=== PATIENT | female | born 1960 | race Caucasian/White ===

== ENCOUNTER 2016-10-26 06:35 | Emergency (ER) | payer OTHER ==
[~2016-10-26] VITALS: Ht 177.8 cm; Wt 104.5 kg
[~2016-10-26 06:35] MED LIST: ALBU6.7H INH; GABA300C3 PO; LANTUSP SQ; LISI-357 PO; METF-324 PO; METH750T2 PO; NAPR-576 PO; NAPR-729 PO; NAPR500 PO; ORPH100T PO; SYNT88TA PO; TRAD5TAB PO; TRAM50 PO
[2016-10-26 06:40] VITALS: BP 115/65; PULSE 92; RESP 16; TEMP 98.1; O2SAT 98
--- NOTE | 2016-10-26 07:10 | PD ---
HPI Chief Complaint: Complaint Time Seen by Provider: 06:55 Travel History International Travel<30 days: No Contact w/Intl Traveler<30days: No Traveled to known affect area: No History of Present Illness HPI This is a 56-year-old female who presents to the emergency department with dysuria, urgency, frequency and hesitancy associated with moderate severity suprapubic abdominal pain, intermittent. She denies any associated back pain, fevers or chills. She has had urinary tract infections in the past and she feels like this is similar. She does have a history of diabetes. PFSH Past Medical History Asthma: Yes Depression: Yes Cancer: No Cardiovascular Problems: No Diabetes: Yes Patient Takes Glucophage: Yes Diminished Hearing: No Endocrine: Yes Genitourinary: No Immune Disorder: No Musculoskeletal: No Neurologic: No Psychiatric: Yes Reproductive: No Immunizations Current: Yes Thyroid Disease: Yes (HYPOTHYROID) Menopausal: No Dilation and Curettage (D&C): Yes (AT AGE 23) Past Surgical History Appendectomy: Yes (08/25) Gynecologic Surgery: Yes (DNC @ 23YO) Pacemaker: No Tonsillectomy: Yes Social History Alcohol Use: Yes ([facility]) Tobacco Use: No Substance Use: No Allergies-Medications (Allergen,Severity, Reaction): Coded Allergies: Aspirin (Verified Allergy, Severe, RASH, 10/26/16) Motrin (Verified Allergy, Severe, HIVES, 10/26/16) Reported Meds & Prescriptions Reported Meds & Active Scripts Active Review of Systems Except as stated in HPI: all other systems reviewed are Neg Physical Exam Narrative GENERAL: Well-nourished, well-developed patient. SKIN: Warm and dry. HEAD: Normocephalic. EYES: No scleral icterus. No injection or drainage. NECK: Supple, trachea midline. CARDIOVASCULAR: Regular rate and rhythm without murmurs. RESPIRATORY: Breath sounds equal bilaterally. No accessory muscle use. GASTROINTESTINAL: Abdomen soft, non-tender, nondistended. : no CVA tenderness MUSCULOSKELETAL: No cyanosis, or edema. Data Data Last Documented VS Vital Signs Date Time Temp Pulse Resp B/P Pulse Ox O2 Delivery O2 Flow Rate FiO2 10/26/16 06:40 98.1 92 16 115/65 98 Room Air Orders Urinalysis - C+S If Indicated (10/26/16 06:50) Labs Laboratory Tests Test 10/26/16 06:55 Urine Color YELLOW Urine Turbidity CLEAR Urine pH 5.5 Urine Specific [place] 1.026 Urine Protein TRACE mg/dL Urine Glucose (UA) NEG mg/dL Urine Ketones TRACE mg/dL Urine Occult Blood NEG Urine Nitrite NEG Urine Bilirubin NEG Urine Urobilinogen 2.0 MG/DL Urine Leukocyte Esterase SMALL Urine RBC 1 /hpf Urine WBC 2 /hpf Urine Squamous Epithelial 2 /hpf Cells Urine Hyaline Casts 11 /lpf Urine Mucus FEW /lpf Microscopic Urinalysis Comment CULT NOT INDICATED MDM Medical Decision Making Medical Screen Exam Complete: Yes Emergency Medical Condition: Yes Interpretation(s) Afebrile, mild tachycardia, normotensive Urinalysis: Trace ketones, small leukocyte esterase Differential Diagnosis Urinary tract infection, pyelonephritis, PID, diverticulitis Narrative Course This is a 56-year-old female who presents to the emergency department with dysuria, urinary frequency and urgency consistent with a urinary tract infection. She is nontoxic appearing. Urinalysis is negative for infection, however given the patient's symptoms I think it's reasonable to treat her with Macrobid. I did discuss with the patient that her urinalysis is not suggestive of an infection and that if she develops new symptoms like fevers or vomiting she should return to the emergency department. She has an appointment with her yarn texture machine operator on Wednesday and I asked her to discuss her symptoms with her if they' ve not completely resolved by then. Diagnosis Primary Impression: Dysuria Patient Instructions: General Instructions Additional Instructions: If you develop fever, persistent vomiting, back pain, or inability to eat return to the emergency department as your urine infection may have progressed to a kidney infection. Complete your antibiotics as prescribed. Stay well hydrated with Gatorade or water. Followup with your primary care physician in 2-3 days if your symptoms have not resolved. Med/Other Pt SpecificInfo: Prescription(s) given Scripts Nitrofurantoin Monohydrate Macrocrystals (Macrobid)100 Mg [id number] Mg PO BID 7 Days Prov:Debbie Woods MD 10/26/16 Disposition: 01 DISCHARGE HOME Condition: Stable Debbie Woods MD Oct 26, 2016 07:10
[2016-10-26 07:14] LABS: BLOOD, URINE NEG (NEG); COMMENT (UR) CULT NOT INDICATED; CULTURE IF INDICATED CULT NOT INDICATED; GLUCOSE,URINE NEG (NEG); HYALINE CAST, URINE 11 /lpf (RARE); KETONE, URINE TRACE mg/dL (NEG); MUCUS URINE FEW /lpf (OCC); NITRITE,URINE NEG (NEG); PH, URINE 5.5 (5.0-8.5); SQUAMOUS EPITHELIAL CELL URINE 2 /hpf (0-5); URINE COLOR YELLOW (YELLW/STRAW)
[2016-10-26] MEDS ORDERED: MACR100C2 PO (07:23)
== END 2016-10-26 07:30 | disposition home or self-care (01) ==
LOC: NEPE 06:35
DX: R30.0 Dysuria (principal); R39.15 Urgency of urination; R35.0 Frequency of micturition; R39.11 Hesitancy of micturition; E11.9 Type 2 diabetes mellitus without complications; E03.9 Hypothyroidism, unspecified; Z79.84 Long term (current) use of oral hypoglycemic drugs; Z86.59 Personal history of other mental and behavioral disorders; Z87.09 Personal history of other diseases of the respiratory system
CPT/HCPCS: 81001; 99283

== ENCOUNTER → 2016-10-28 | Outpatient (CLI) | payer OTHER ==
[~2016-10-28] MED LIST changes: -ALBU6.7H INH; -GABA300C3 PO; -LANTUSP SQ; -LISI-357 PO; +MACR100C2 PO; -METF-324 PO; -METH750T2 PO; -NAPR-576 PO; -NAPR-729 PO; -NAPR500 PO; -ORPH100T PO; -SYNT88TA PO; -TRAD5TAB PO; -TRAM50 PO
[2016-10-28 07:50] LABS: FREE T4 1.55 NG/DL (0.76-1.46)
[2016-10-28 15:51] LABS: HEMOGLOBIN A1a 0.9 %; HEMOGLOBIN A1b 2.1 %; HEMOGLOBIN Ao 83.9 %
[2016-10-28 16:10] LABS: HDL CHOLESTEROL 57.7 MG/DL (40.0-60.0)
== END ==
LOC: CLAB 06:57
PROVIDERS: ATTEND Internal Medicine Endocrinology, Diabetes & Metabolism
DX: E11.9 Type 2 diabetes mellitus without complications (principal); E03.9 Hypothyroidism, unspecified; I10 Essential (primary) hypertension; E78.5 Hyperlipidemia, unspecified
CPT/HCPCS: 36415; 80061; 82306; 83036; 84439; 84443

== ENCOUNTER → 2017-02-24 | Outpatient (CLI) | payer OTHER ==
[2017-02-24 08:18] LABS: MICRO ALBUMIN RANDOM URINE RAW 8.9 MG/L (0.0-30.0)
[2017-02-24 08:41] LABS: ALKALINE PHOSPHATASE 77 U/L (45-117); ALT (GPT) 20 U/L (10-53); ANION GAP 10 MEQ/L (5-15); AST (GOT) 12 U/L (15-37); BICARBONATE 29.2 MEQ/L (21.0-32.0); BLOOD UREA NITROGEN 18 MG/DL (7-18); CHLORIDE 104 MEQ/L (98-107); FREE T4 1.26 NG/DL (0.76-1.46); GLOMERULAR FILTRATION RATE 67 ML/MIN (>89); GLUCOSE,FASTING 117 MG/DL (74-99); HDL CHOLESTEROL 51.6 MG/DL (40.0-60.0); LDL CHOLESTEROL 87 MG/DL (0-99); SODIUM (NA) 143 MEQ/L (136-145); TOTAL BILIRUBIN ADULT 0.4 MG/DL (0.2-1.0)
[2017-02-24 11:21] LABS: HEMOGLOBIN A1b 1.9 %; HEMOGLOBIN Ao 84.1 %; HEMOGLOBIN LA1C 2.1 %
== END ==
LOC: CLAB 07:27
PROVIDERS: ATTEND Internal Medicine Endocrinology, Diabetes & Metabolism
DX: E11.9 Type 2 diabetes mellitus without complications (principal); I10 Essential (primary) hypertension; E78.5 Hyperlipidemia, unspecified; E03.9 Hypothyroidism, unspecified; E55.9 Vitamin D deficiency, unspecified
CPT/HCPCS: 36415; 80053; 80061; 82043; 82306; 83036; 84439; 84443

== ENCOUNTER 2017-07-08 08:29 | Emergency (ER) | payer OTHER ==
[~2017-07-08] VITALS: Ht 175.3 cm; Wt 104.0 kg
[2017-07-08 08:33] VITALS: BP 167/87; PULSE 88; RESP 16; TEMP 98.9; O2SAT 99
[2017-07-08] MEDS ORDERED: LISI-519 PO (08:42)
[2017-07-08] MEDS ORDERED: GABA300C5 PO (08:42)
[2017-07-08] MEDS ORDERED: ROSU5 PO (08:42)
[2017-07-08] MEDS ORDERED: METF1000 PO (08:42)
[2017-07-08] MEDS ORDERED: LEVO100T5 PO (08:42)
[2017-07-08] MEDS ORDERED: LANTUS2P SQ (08:42)
[2017-07-08] MEDS ORDERED: TRAD5TAB PO (08:42)
[2017-07-08] MEDS ORDERED: CEPH-459 PO (09:14)
[2017-07-08] MEDS ORDERED: TETANUS/DIPHTHERIA TOXOID ADULT 0.5 ML VIAL IM ONE (09:15)
--- NOTE | 2017-07-08 09:15 | PD ---
HPI Chief Complaint: Laceration/Skin Injury Time Seen by Provider: 08:43 Travel History International Travel<30 days: No Contact w/Intl Traveler<30days: No Traveled to known affect area: No History of Present Illness HPI 56-year-old female presents to the emergency department for evaluation of small laceration to the left lower extremity. Patient reports that her dogs medical collar cut the leg at approximately 7 AM this morning. She washed the area and bandaged it herself. Her tetanus immunization is not up to date. She reports only minimal discomfort at the site. No other injuries. PFSH Past Medical History Asthma: Yes Depression: Yes Cancer: No Cardiovascular Problems: No Diabetes: Yes Diminished Hearing: No Endocrine: Yes Genitourinary: No Immune Disorder: No Musculoskeletal: No Neurologic: No Psychiatric: Yes Reproductive: No Immunizations Current: Yes Thyroid Disease: Yes (HYPOTHYROID) Menopausal: No Dilation and Curettage (D&C): Yes (AT AGE 23) Past Surgical History Appendectomy: Yes (08/25) Gynecologic Surgery: Yes (DNC @ 23YO) Pacemaker: No Tonsillectomy: Yes Social History Alcohol Use: Yes ([facility]) Tobacco Use: No Substance Use: No Allergies-Medications (Allergen,Severity, Reaction): Coded Allergies: aspirin (Verified Allergy, Severe, RASH, 07/08/17) ibuprofen (Verified Allergy, Severe, HIVES, 07/08/17) Reported Meds & Prescriptions Reported Meds & Active Scripts Active Keflex (Cephalexin) 250 Mg Cap 250 Mg PO Q6H 5 Days Reported Lantus Inj (Insulin Glargine) 1,000 Unit/10 Ml Vial 31 Units SQ HS Gabapentin 300 Mg Cap 300 Mg PO HS Crestor (Rosuvastatin Calcium) 5 Mg Tab 5 Mg PO DAILY Lisinopril 5 Mg Tab 5 Mg PO DAILY Levothyroxine (Levothyroxine Sodium) 100 Mcg Tab 100 Mcg PO DAILY Tradjenta (Linagliptin) 5 Mg Tab 5 Mg PO DAILY Metformin (Metformin HCl) 1,000 Mg Tab 1,000 Mg PO BIDPC With meals Review of Systems Except as stated in HPI: all other systems reviewed are Neg Physical Exam Narrative GENERAL: Well-nourished, well-developed patient. SKIN: Focused skin assessment warm/dry. Small 0.5 cm laceration to the left lower extremity medial aspect. No active bleeding. Wound edges well approximated. HEAD: Normocephalic. EYES: No scleral icterus. No injection or drainage. NECK: Supple, trachea midline. No JVD or lymphadenopathy. CARDIOVASCULAR: Regular rate and rhythm without murmurs, gallops, or rubs. RESPIRATORY: Breath sounds equal bilaterally. No accessory muscle use. GASTROINTESTINAL: Abdomen soft, non-tender, nondistended. MUSCULOSKELETAL: No cyanosis, or edema. Data Data Last Documented VS Vital Signs Date Time Temp Pulse Resp B/P (MAP) Pulse Ox O2 Delivery O2 Flow Rate FiO2 07/08/17 08:33 98.9 88 16 167/87 (113) 99 Orders Orders Tetanus/Diphtheria Tox Adult (Tetanus/Di (07/08/17 09:15) MDM Medical Decision Making Medical Screen Exam Complete: Yes Emergency Medical Condition: Yes Differential Diagnosis Laceration, abrasion, contusion Narrative Course 56-year-old female with small laceration to the left lower extremity. Wound edges are well approximated. There is no active bleeding. 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 Patient is a diabetic and concerned wound infection. The wound was thoroughly cleansed. Steri-Strip placed to approximate the edges. Patient advised to follow up PCP for wound recheck. Tetanus immunization updated. Procedures Procedure Narrative LACERATION LOCATION: Left lower extremity LENGTH: 0.5 cm NUMBER OF STITCHES/JULIAN: Steri-Stripped REPAIR: The area of the laceration was prepped with Betadine and sterilely draped. The wound was copiously irrigated and explored without evidence of foreign body, tendon injury or neurovascular injury. The wound was closed using Steri-Strip. A sterile dressing was applied. The patient was advised to keep the dressing clean and dry. Patient tolerated the procedure well. Diagnosis Primary Impression: Laceration of left leg Qualified Codes: S81.812A - Laceration without foreign body, left lower leg, initial encounter Referrals: Primary Care Physician Additional Instructions: Keep the Steri-Strip in place for 7 days Do not submerge the wound in water. Return if he develops signs of infection such as redness, increased pain, really drainage from site, fever or chills. Scripts Cephalexin (Keflex) 250 Mg Cap 250 MG PO Q6H for Infection for 5 Days, #20 CAP 0 Refills Prov: Alicia Conde 07/08/17 Disposition: 01 DISCHARGE HOME Condition: Stable Alicia Conde Jul 08, 2017 09:15
== END 2017-07-08 09:42 | disposition home or self-care (01) ==
LOC: NEPD 08:29
DX: S81.812A Laceration without foreign body, left lower leg, initial encounter (principal); J45.909 Unspecified asthma, uncomplicated; E11.9 Type 2 diabetes mellitus without complications; Z23 Encounter for immunization; W26.9XXA Contact with unspecified sharp object(s), initial encounter; Y93.9 Activity, unspecified; Y92.009 Unspecified place in unspecified non-institutional (private) residence as the place of occurrence of the external cause
CPT/HCPCS: 90471; 90714

== ENCOUNTER → 2017-08-25 | Outpatient (CLI) | payer OTHER ==
[~2017-08-25] MED LIST changes: +CEPH-459 PO; +GABA300C5 PO; +LANTUS2P SQ; +LEVO100T5 PO; +LISI-519 PO; -MACR100C2 PO; +METF1000 PO; +ROSU5 PO; +TRAD5TAB PO
[2017-08-25 10:16] LABS: ANION GAP 7 MEQ/L (5-15); AST (GOT) 16 U/L (15-37); BICARBONATE 26.9 MEQ/L (21.0-32.0); BLOOD UREA NITROGEN 18 MG/DL (7-18); CHLORIDE 104 MEQ/L (98-107); GLOMERULAR FILTRATION RATE 57 ML/MIN (>89); GLUCOSE,FASTING 98 MG/DL (74-99); POTASSIUM 3.8 MEQ/L (3.5-5.1); SODIUM (NA) 138 MEQ/L (136-145)
[2017-08-25 10:27] LABS: ALKALINE PHOSPHATASE 75 U/L (45-117); ALT (GPT) 23 U/L (10-53); FREE T4 1.32 NG/DL (0.76-1.46); HDL CHOLESTEROL 54.1 MG/DL (40.0-60.0); LDL CHOLESTEROL 74 MG/DL (0-99); TOTAL BILIRUBIN ADULT 0.4 MG/DL (0.2-1.0)
[2017-08-25 17:09] LABS: HEMOGLOBIN A1b 2.2 %; HEMOGLOBIN Ao 83.7 %
== END ==
LOC: PLAB 07:10
PROVIDERS: ATTEND Internal Medicine Endocrinology, Diabetes & Metabolism
DX: E78.5 Hyperlipidemia, unspecified (principal); E03.9 Hypothyroidism, unspecified; E11.9 Type 2 diabetes mellitus without complications; I10 Essential (primary) hypertension; E55.9 Vitamin D deficiency, unspecified
CPT/HCPCS: 36415; 80053; 80061; 82306; 83036; 84439; 84443

== ENCOUNTER 2018-06-17 12:35 | Inpatient (IN) ==
[2018-06-17 14:01] LABS: Baso # (Auto) 0.1 th/mm3 (0.0-0.2); Baso % (Auto) 0.4 % (0.0-2.0); Eos # (Auto) 0.1 th/mm3 (0.0-0.4); Hematocrit 40.8 % (35.0-46.0); Hemoglobin 13.6 gm/dL (11.6-15.3); Lymph # (Auto) 1.1 th/mm3 (1.0-4.8); Lymph % (Auto) 7.8 % (9.0-44.0); Mean Corpuscular HGB Conc 33.3 % (32.0-36.0); Mean Corpuscular Hemoglobin 31.6 pg (27.0-34.0); Mean Platelet Volume 8.2 fL (7.0-11.0); Mono # (Auto) 0.7 th/mm3 (0.0-0.9); Mono % (Auto) 4.8 % (0.0-8.0); Neut # (Auto) 12.2 th/mm3 (1.8-7.7); Platelet Count 306 th/mm3 (150-450); Red Blood Count 4.29 mil/mm3 (4.00-5.30); Red Cell Distribution Width 12.8 % (11.6-17.2); White Blood Count 14.1 th/mm3 (4.0-11.0)
[2018-06-17 14:21] LABS: Alkaline Phosphatase 85 U/L (45-117)
[2018-06-17 14:24] LABS: Alanine Aminotransferase 17 U/L (10-53); Albumin 3.4 g/dL (3.4-5.0); Anion Gap 15 meq/L (5-15); Aspartate Aminotransferase 17 U/L (15-37); Blood Urea Nitrogen 85 mg/dL (7-18); Carbon Dioxide 18.6 meq/L (21.0-32.0); Chloride 106 meq/L (98-107); Glomerular Filtration Rate 5 mL/min (>89); Glucose,Random 180 mg/dL (74-106); Lipase 145 U/L (73-393); Potassium 6.3 meq/L (3.5-5.1); Sodium 140 meq/L (136-145)
--- NOTE | 2018-06-17 14:50 | ED ---
HPI General Chief complaint: Abdominal Pain Stated complaint: Numbness On Face Time Seen by Provider: 06/17/18 14:28 History of Present Illness HPI narrative: 57-year-old female with history of diabetes, hypertension, here for evaluation of epigastric pain, feeling lightheaded, having a strange sensation and tingling in her mouth. About a week ago the patient was diagnosed with plantar fasciitis and started on naproxen 500 mg twice daily by her primary care physician. She began having some epigastric discomfort 2 days ago and started taking Nexium for this. She states that around this time she also began having symptoms of feeling lightheaded on standing, feeling as though her arms and legs are heavy, having intermittent palpitations. Basic lab work was performed in triage and were available as soon as the patient was brought back to an exam room and revealed that the patient is in acute renal failure. She has never had renal issues in the past. Related Data Allergies Allergy/AdvReac Type Severity Reaction Status Date / Time aspirin Allergy Severe RASH Verified 07/08/17 08:40 ibuprofen Allergy Severe HIVES Verified 07/08/17 08:40 Review of Systems ROS: all other systems reviewed are negative [facility] Medical History Medical History Asthma (Acute) Depression (Acute) Diabetes (Acute) Hypertension (Acute) Social History Social History Substance History: No History of Abuse Second Hand Smoke Exposure: No Smoking Status: Never smoker How Often Do You Have a Drink Containing Alcohol: 2 to 4 times a month Recent Travel in [facility] within the Last 8 Weeks: No Recent Out of Country Travel within the Last 8 Weeks: No Exam Narrative Exam Narrative: GENERAL: Well-developed, well-nourished, awake, alert, pleasant , no apparent distress. SKIN: Focused skin assessment warm/dry. HEAD: Atraumatic. Normocephalic. EYES: Pupils equal and round. No scleral icterus. No injection or drainage. ENT: No nasal bleeding or discharge. Mucous membranes pink and dry. NECK: Trachea midline. No JVD. CARDIOVASCULAR: Regular rate and rhythm. RESPIRATORY: No accessory muscle use. Clear to auscultation. Breath sounds equal bilaterally. GASTROINTESTINAL: Abdomen soft, nondistended. Mild epigastric tenderness without peritoneal signs. Rest of abdomen is soft and nontender. Normal bowel sounds. MUSCULOSKELETAL: No obvious deformities. No clubbing. No cyanosis. No edema. NEUROLOGICAL: Awake and alert. No obvious cranial nerve deficits. Motor grossly within normal limits. Normal speech. PSYCHIATRIC: Appropriate mood and affect; insight and judgment normal. Course Initial Documented Vital Signs Temperature 97.9 F 06/17/18 12:51 Pulse Rate 108 H 06/17/18 12:51 Respiratory Rate 18 06/17/18 12:51 Blood Pressure 152/61 H 06/17/18 12:51 Pulse Oximetry 96 06/17/18 12:51 Last Documented Vital Signs Temperature 97.9 F 06/17/18 12:51 Pulse Rate 98 H 06/17/18 16:10 Respiratory Rate 16 06/17/18 16:10 Blood Pressure 174/77 H 06/17/18 16:10 Pulse Oximetry 100 06/17/18 16:10 Medical Decision Making MDM Narrative Medical decision making narrative: This 57-year-old female is in acute renal failure with a creatinine of 8.57. This is likely secondary to naproxen use with history of diabetes and hypertension. She has never had renal failure in the past. Case discussed with on-call basting machine operator Dr. Guzman who agrees with my plan for 1 g of IV calcium gluconate, an amp of sodium bicarb, 1 L normal saline bolus followed by continuous infusion, and Kayexalate. Patient will be admitted and he will see the patient in consultation. Case discussed with hospitalist Dr. Alonso who will admit the patient to his service. Medical Screen Exam Complete: Yes Emergency Medical Condition: Yes Differential Diagnosis Differential Diagnosis: Acute renal failure, metabolic abnormality, peptic ulcer disease, pancreatitis, ACS Lab Data Result diagrams: 06/17/18 13:20 06/17/18 13:20 Lab Results 06/17/18 06/17/18 06/17/18 Range/Units 13:20 13:20 14:56 WBC 14.1 H (4.0-11.0) th/mm3 RBC 4.29 (4.00-5.30) mil/mm3 Hgb 13.6 (11.6-15.3) gm/dL Hct 40.8 (35.0-46.0) % MCV 95.0 (80.0-100.0) fL MCH 31.6 (27.0-34.0) pg MCHC 33.3 (32.0-36.0) % RDW 12.8 (11.6-17.2) % Plt Count 306 (150-450) th/mm3 MPV 8.2 (7.0-11.0) fL Neut % (Auto) 86.0 H (16.0-70.0) % Lymph % (Auto) 7.8 L (9.0-44.0) % [place] % (Auto) 4.8 (0.0-8.0) % Eos % (Auto) 1.0 (0.0-4.0) % Baso % (Auto) 0.4 (0.0-2.0) % Neut # (Auto) 12.2 H (1.8-7.7) th/mm3 Lymph # (Auto) 1.1 (1.0-4.8) th/mm3 [place] # (Auto) 0.7 (0.0-0.9) th/mm3 Eos # (Auto) 0.1 (0.0-0.4) th/mm3 Baso # (Auto) 0.1 (0.0-0.2) th/mm3 WBC Differential . Differential Comment Auto diff final PT 9.7 L (9.8-11.6) sec INR 1.0 Ratio APTT 25.0 (24.3-30.1) sec Sodium 140 (136-145) meq/L Potassium 6.3 H (3.5-5.1) meq/L Chloride 106 (98-107) meq/L Carbon Dioxide 18.6 L (21.0-32.0) meq/L Anion Gap 15 (5-15) meq/L BUN 85 H (7-18) mg/dL Creatinine 8.57 H (0.50-1.00) mg/dL Estimated GFR 5 L (>89) mL/min Random Glucose 180 H (74-106) mg/dL Calcium 9.0 (8.5-10.1) mg/dL Total Bilirubin 0.4 (0.2-1.0) mg/dL AST 17 (15-37) U/L ALT 17 (10-53) U/L Alkaline Phosphatase 85 (45-117) U/L Total Creatine Kinase (26-192) U/L Troponin I (0.02-0.05) ng/mL Total Protein 8.0 (6.4-8.2) g/dL Albumin 3.4 (3.4-5.0) g/dL Lipase 145 (73-393) U/L Urine Color (Yellw/Straw) Urine Clarity (Clear) Urine pH (5.0-8.5) Ur Specific [place] (1.002-1.035) Urine Protein (Neg-Trace) mg/dL Urine Glucose (UA) (Negative) mg/dL Urine Ketones (Negative) mg/dL Urine Occult Blood (Negative) Urine Nitrate (Negative) Urine Bilirubin (Negative) Urine Urobilinogen (Less than 2) mg/dL Ur Leukocyte Esterase (Negative) Urine RBC (0-3) /hpf Urine WBC (0-5) /hpf Ur Squamous Epith Cells (0-5) /hpf Urine Bacteria (None) /hpf Hyaline Casts (0-3) /lpf Micro UA Comment Ur Microscopic Review Urine Culture Comments 06/17/18 06/17/18 Range/Units 14:56 14:56 WBC (4.0-11.0) th/mm3 RBC (4.00-5.30) mil/mm3 Hgb (11.6-15.3) gm/dL Hct (35.0-46.0) % MCV (80.0-100.0) fL MCH (27.0-34.0) pg MCHC (32.0-36.0) % RDW (11.6-17.2) % Plt Count (150-450) th/mm3 MPV (7.0-11.0) fL Neut % (Auto) (16.0-70.0) % Lymph % (Auto) (9.0-44.0) % [place] % (Auto) (0.0-8.0) % Eos % (Auto) (0.0-4.0) % Baso % (Auto) (0.0-2.0) % Neut # (Auto) (1.8-7.7) th/mm3 Lymph # (Auto) (1.0-4.8) th/mm3 [place] # (Auto) (0.0-0.9) th/mm3 Eos # (Auto) (0.0-0.4) th/mm3 Baso # (Auto) (0.0-0.2) th/mm3 WBC Differential Differential Comment PT (9.8-11.6) sec INR Ratio APTT (24.3-30.1) sec Sodium (136-145) meq/L Potassium (3.5-5.1) meq/L Chloride (98-107) meq/L Carbon Dioxide (21.0-32.0) meq/L Anion Gap (5-15) meq/L BUN (7-18) mg/dL Creatinine (0.50-1.00) mg/dL Estimated GFR (>89) mL/min Random Glucose (74-106) mg/dL Calcium (8.5-10.1) mg/dL Total Bilirubin (0.2-1.0) mg/dL AST (15-37) U/L ALT (10-53) U/L Alkaline Phosphatase (45-117) U/L Total Creatine Kinase 48 (26-192) U/L Troponin I Less than 0.02 L (0.02-0.05) ng/mL Total Protein (6.4-8.2) g/dL Albumin (3.4-5.0) g/dL Lipase 131 (73-393) U/L Urine Color Yellow (Yellw/Straw) Urine Clarity Cloudy H (Clear) Urine pH 5.0 (5.0-8.5) Ur Specific [place] 1.013 (1.002-1.035) Urine Protein 30 H (Neg-Trace) mg/dL Urine Glucose (UA) Negative (Negative) mg/dL Urine Ketones Negative (Negative) mg/dL Urine Occult Blood Small H (Negative) Urine Nitrate Negative (Negative) Urine Bilirubin Negative (Negative) Urine Urobilinogen Less than 2 (Less than 2) mg/dL Ur Leukocyte Esterase Trace H (Negative) Urine RBC 1 (0-3) /hpf Urine WBC 9 H (0-5) /hpf Ur Squamous Epith Cells 2 (0-5) /hpf Urine Bacteria Rare H (None) /hpf Hyaline Casts 1 (0-3) /lpf Micro UA Comment Culture indicated Ur Microscopic Review Not Reportable Urine Culture Comments Culture indicated Imaging Data Radiologist's impression: Abdomen/Pelvis CT 06/17/18 14:33 CONCLUSION: 1. Negative for an acute process Discharge Plan Discharge Disposition Patient Disposition: 30 Still Patient Discharge Details Diagnosis: Acute renal failure, Acute hyperkalemia Physicians Team ED Provider: Wali Wall Primary Care Provider: Tariq Schroeder Discharge Interventions Interventions: Vital Signs Last Done: 06/17/18 16:10 Status ED Status: With Doctor
[2018-06-17] MEDS ORDERED: Sod Chloride 0.9% Inj 1,000 ML IV.CONT SCH (15:15)
[2018-06-17] MEDS ORDERED: Sodium Polystyrene Sulfonate/Sorbitol Liq 15 GM/60 ML UDC PO ONE (15:15)
[2018-06-17 15:26] LABS: Lipase 131 U/L (73-393)
[2018-06-17 15:28] LABS: Prothrombin Time 9.7 sec (9.8-11.6)
[2018-06-17 15:29] LABS: Creatine Kinase 48 U/L (26-192)
[2018-06-17] MEDS ORDERED: Dextrose 50% in Water 50 ML Vial IV.PUSH ONE (15:33)
--- NOTE | 2018-06-17 15:41 | CT ---
EXAM DATE: 06/17/2018 3:16 PM EDT AGE/SEX: 57 years / Female INDICATIONS: Epigastric pain and ammonia taste in the mouth. CLINICAL DATA: This is the patient's initial encounter. Patient reports that signs and symptoms have been present for 1 week and indicates a pain score of 4/10. MEDICAL/SURGICAL HISTORY: Diabetes. Appendectomy. RADIATION DOSE: 11.75 CTDI (mGy) COMPARISON: No prior exams available for comparison. TECHNIQUE: Multiple contiguous axial images were obtained through the abdomen. Images were obtained using multiple row detector helical technique. Using automated exposure control and adjustment of the mA and/or kV according to patient size, radiation dose was kept as low as reasonably achievable to o btain optimal diagnostic quality images. DICOM format image data is available electronically for rev iew and comparison. FINDINGS: Lung bases are clear. Percocet The liver and gallbladder unremarkable Spleen and pancreas appear normal and kidneys unremarkable Cecum, ascending, transverse and descending colon appear normal. Pelvic contents are unremarkable Portion of the skeleton visualized is unremarkable CONCLUSION: 1. Negative for an acute process Electronically signed by: Earl Beckham MD 06/17/2018 3:40 PM EDT
[2018-06-17 15:59] LABS: Bacteria,Urine Rare /hpf; Bilirubin,Urine Negative (Negative); Clarity,Urine Cloudy (Clear); Color,Urine Yellow (Yellw/Straw); Glucose,Urine (UA) Negative (Negative); Hyaline Casts,Urine 1 /lpf (0-3); Leukocyte Esterase,Urine Trace (Negative); Nitrite,Urine Negative (Negative); Specific Gravity,Urine 1.013 (1.002-1.035); Squamous Epithelial Cell,Urine 2 /hpf (0-5)
[2018-06-17] MEDS ORDERED: Dextrose 50% in Water 50 ML Vial IV.PUSH PRN (16:47)
[2018-06-17] MEDS: Sod Chloride 0.9% Inj 1,000 ML IV.CONT SCH ×2 (16:50→20:13)
--- NOTE | 2018-06-17 17:37 | P.HPIM ---
History of Present Illness Primary Care Physician: Tariq Schroeder MD History of Present Illness: Mrs. Flores is a 57-year-old female. She has a past medical history of diabetes and hypertension. She also had plantar fasciitis with rupture approximately 1 week ago. For this she had been treated with NSAIDs. She comes into the ER today complaining of facial numbness. Workup reveals that she is in acute renal failure. She has no prior history of renal disease. Creatinine is 8.57 and potassium is elevated at 6.3. Treatments for hyperkalemia given in the ER. Patient denies any recent trauma to the back. She also has not had any significant amount of diarrhea and no nausea or vomiting. No risk for dehydration. A urinary tract infection is present and may have been contributory though this is not suspected to be the primary cause. She reports that she is not an avid drinker of liquids but she does drink and eat regularly. No other complaints at this time. - Diagnosis (1) Acute renal failure (2) Acute hyperkalemia Inpatient Certification: I certify that the inpatient services were ordered in accordance with Medicare regulations governing the order. This includes certification that hospital inpatient services are reasonable and necessary and in the case of services not specified as inpatient-only under 42 CFR 419.22(n), that they are appropriately provided as inpatient services in accordance to with the 2-midnight benchmark under 43 CFR 412.3(e) Estimated Total Length of Stay (Days): 3 Plans for Post Hospital Care: Home Review of Systems Constitutional: No fevers, no chills no night sweats, no fatigue, weakness Eyes: No eye pain, no blurry vision, no loss of vision ENT: No sore throat, no ear pain, no rhinorrhea Cardiovascular: No chest pain, no tachycardia, no palpitations, no shortness of breath, no syncope Respiratory: No wheezing, no cough, no shortness of breath Gastrointestinal: No abdominal pain, no black tarry stools, no bright red blood per rectum, no vomiting, no diarrhea Musculoskeletal: No joint pain, no muscle cramps, no stiffness Integumentary: No rash, no ulcers, no drainage Neurologic: No sensory loss, no loss of motor function, no dizziness, facial numbness Psychiatric: No behavioral changes, no hallucinations, no suicidal ideations PMF - History History Provided By: Patient - Medical History Medical History: Medical History (Last Updated 06/17/18 @ 14:59 by Renzo Valerio) Asthma Depression Diabetes Hypertension - Family History Family History: Family History (Last Updated 06/17/18 @ 17:33 by Eliu Alonso MD) Other Osteoarthritis - Tobacco History Second Hand Smoke Exposure: No Tobacco Use In Past 30 Days: No Smoking Status: Never smoker - Alcohol History How Often Do You Have a Drink Containing Alcohol: 2 to 4 times a month - Substance Use History Substance History: No History of Abuse - Travel History Recent Travel in the [place] Within the Last 8 Weeks: No Recent Travel Out of the Country Within the Last 8 Weeks: No - Immunization History Tetanus Immunization: <5 Years Hx Influenza Vaccine This Season: Yes Medications and Allergies Active Medications: Active Medications Al Hydroxide/Mg Hydroxide (Milk Of Suresh Liq) 30 ml PO Q12H PRN PRN Reason: Mild Constipation Dextrose (D50w Vial) 50 ml IV.PUSH UNSCH PRN PRN Reason: PER HYPOGLYCEMIA PROTOCOL Glucagon (Glucagon Inj) 1 mg OTHER UNSCH PRN PRN Reason: for Hypoglycemia Protocol Sodium Chloride (Ns Inj) 1,000 mls @ 125 mls/hr IV.CONT .Q8H ALEKSANDR Last Admin: 06/17/18 16:50 Dose: 125 mls/hr Insulin Aspart (Novolog Insulin Correctional Sugar Inj) 0 unit SQ ACHS ALEKSANDR; Protocol Ondansetron HCl (Zofran Inj) 4 mg IV.PUSH Q6H PRN PRN Reason: NAUSEA OR VOMITING Sodium Chloride (Ns Flush) 2 ml IV.FLUSH PRN PRN PRN Reason: FLUSH AFTER USING IV ACCESS Allergies Allergy/AdvReac Type Severity Reaction Status Date / Time aspirin Allergy Severe RASH Verified 07/08/17 08:40 ibuprofen Allergy Severe HIVES Verified 07/08/17 08:40 Home Medications Medication Instructions Recorded Confirmed Type gabapentin 300 mg PO QID 06/17/18 06/17/18 History insulin glargine [Lantus U-100 31 units SUB-Q HS 06/17/18 06/17/18 History Insulin] levothyroxine 100 mcg PO DAILY 06/17/18 06/17/18 History linagliptin [Tradjenta] 5 mg PO DAILY 06/17/18 06/17/18 History lisinopril 5 mg PO DAILY 06/17/18 06/17/18 History metformin 1,000 mg PO BID 06/17/18 06/17/18 History rosuvastatin [Crestor] 5 mg PO DAILY 06/17/18 06/17/18 History Exam Vital signs: Vital Signs 06/17/18 12:51 06/17/18 13:03 06/17/18 16:10 Temperature 97.9 F Pulse Rate 108 H 97 H 98 H Respiratory Rate 18 18 16 Blood Pressure 152/61 H 172/85 H 174/77 H Pulse Oximetry 96 98 100 06/17/18 16:50 Temperature Pulse Rate 98 H Respiratory Rate 16 Blood Pressure 174/77 H Pulse Oximetry 100 Intake & Output 06/16/18 06/17/18 06/17/18 18:59 06:59 18:59 Weight 101.151 kg Narrative: GENERAL: NAD, A&Ox3 HEAD: Normocephalic. NECK: Supple, trachea midline. No lymphadenopathy. EYES: No scleral icterus. No injection or drainage. CARDIOVASCULAR: Regular rate and rhythm without murmurs, gallops, or rubs. RESPIRATORY: Breath sounds equal bilaterally. No accessory muscle use. GASTROINTESTINAL: Abdomen soft, non-tender, nondistended. MUSCULOSKELETAL: No cyanosis, or edema. SKIN: Warm and dry. NEURO: No focal neurological deficits. Results - Labs CBC & Chem 7: 06/17/18 13:20 06/17/18 13:20 Labs: Short CBC 06/17/18 Range/Units 13:20 WBC 14.1 H (4.0-11.0) th/mm3 Hgb 13.6 (11.6-15.3) gm/dL Hct 40.8 (35.0-46.0) % Plt Count 306 (150-450) th/mm3 BMP 06/17/18 13:20 Sodium 140 Potassium 6.3 H Chloride 106 Carbon Dioxide 18.6 L BUN 85 H Creatinine 8.57 H Calcium 9.0 Cardiac Enzymes 06/17/18 Range/Units 14:56 Total Creatine Kinase 48 (26-192) U/L Troponin I Less than 0.02 L (0.02-0.05) ng/mL Liver Function 06/17/18 Range/Units 13:20 Total Bilirubin 0.4 (0.2-1.0) mg/dL AST 17 (15-37) U/L ALT 17 (10-53) U/L Alkaline Phosphatase 85 (45-117) U/L Albumin 3.4 (3.4-5.0) g/dL Urine 06/17/18 Range/Units 14:56 Urine Color Yellow (Yellw/Straw) Urine Clarity Cloudy H (Clear) Urine pH 5.0 (5.0-8.5) Ur Specific [place] 1.013 (1.002-1.035) Urine Protein 30 H (Neg-Trace) mg/dL Urine Glucose (UA) Negative (Negative) mg/dL - Imaging Impressions Abdomen/Pelvis CT 06/17/18 14:33 CONCLUSION: 1. Negative for an acute process Caprini VTE Risk Assessment Caprini VTE Risk Assessment: No/Low Risk (score <= 1) Caprini Risk Assessment Model: Point Value = 1 Point Value = 2 Point Value = 3 Point Value = 5 Age 41-60 Minor surgery BMI > 25 kg/m2 Swollen legs Varicose veins or History of unexplained or recurrent spontaneous Oral contraceptives or hormone replacement Sepsis (< 1 month) Serious lung disease, including pneumonia (< 1 month) Abnormal pulmonary function Acute myocardial infarction Congestive heart failure (< 1 month) History of inflammatory bowel disease Medical patient at bed rest Age 61-74 Arthroscopic surgery Major open surgery (> 45 min) Laparoscopic surgery (> 45 min) Malignancy Confined to bed (> 72 hours) Immobilizing plaster cast Central venous access Age >= 75 History of VTE Family history of VTE Factor V Leiden Prothrombin 30857A Lupus anticoagulant Anticardiolipin antibodies Elevated serum homocysteine Heparin-induced thrombocytopenia Other congenital or acquired thrombophilia Stroke (< 1 month) Elective arthroplasty Hip, pelvis, or leg fracture Acute spinal cord injury (< 1 month) Prophylaxis Regimen: Total Risk Factor Score Risk Level Prophylaxis Regimen 0-1 Low Early ambulation 2 Moderate Order ONE of the following: *Sequential Compression Device (SCD) *Heparin 5000 units SQ BID 3-4 Higher Order ONE of the following medications: *Heparin 5000 units SQ TID *Enoxaparin/Lovenox 40 mg SQ daily (WT < 150 kg, CrCl > 30 mL/min) *Enoxaparin/Lovenox 30 mg SQ daily (WT < 150 kg, CrCl > 10-29 mL/min) *Enoxaparin/Lovenox 30 mg SQ BID (WT < 150 kg, CrCl > 30 mL/min) AND/OR *Sequential Compression Device (SCD) 5 or more Highest Order ONE of the following medications: *Heparin 5000 units SQ TID (Preferred with Epidurals) *Enoxaparin/Lovenox 40 mg SQ daily (WT < 150 kg, CrCl > 30 mL/min) *Enoxaparin/Lovenox 30 mg SQ daily (WT < 150 kg, CrCl > 10-29 mL/min) *Enoxaparin/Lovenox 30 mg SQ BID (WT < 150 kg, CrCl > 30 mL/min) AND *Sequential Compression Device (SCD) Assessment and Plan - Assessment (1) Acute renal failure Code(s): N17.9 - Acute kidney failure, unspecified Status: Acute (2) Acute hyperkalemia Code(s): E87.5 - Hyperkalemia Status: Acute - Plan 57-year-old female admitted secondary to acute renal failure with hyperkalemia and neurologic/cardiac symptoms Acute renal failure Etiology may be related to NSAIDs IV hydration Discontinue NSAIDs Avoid nephrotoxins Nephrology consult Renal ultrasound Monitor creatinine Monitor for improvement versus worsening with labs tonight and tomorrow morning Hyperkalemia Treated with IV hydration, insulin, and calcium gluconate in the ER Repeat 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
--- NOTE | 2018-06-17 19:33 | P.CONNP ---
History of Present Illness Service: Nephrology Consult date: 06/17/18 Requesting Physician: Eliu Alonso Reason for Consult: Acute renal failure Primary Care Provider: Tariq Schroeder MD Family Provider: Tariq Schroeder MD Chief Complaint: Pain in the epigastric region altered taste. 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 blood pressure, diabetes was well controlled on insulin and current medications, he never had kidney problems, 2 weeks ago she developed left-sided plantar fasciitis and went to her primary to review she was prescribed Naprosyn 500 mg twice daily, she took this since last week Wednesday, then developed epigastric pain and it was severe in nature with some nausea, she took pantoprazole, the pain persisted he noticed altered taste in her mouth, she described tasted like ammonia, appetite decline, he did have diarrhea as well and he has profound weakness and unsteady gait as well, she decided to come to the emergency room she was noted to have acute renal failure creatinine of 8.5 and potassium of 6.3.She received Calcium gluconate, D50, Insulin, Sodium bicarbonate, Kayexalate. Review of Systems Constitutional: Reports anorexia, Reports weakness Gastrointestinal: Reports abdominal pain, Reports heartburn, Reports loose stools Musculoskeletal: Reports tingling Neurologic: Reports tingling/numbness/burning sensations, Reports weakness Psychiatric: Reports anxiety, Reports depression Allergic/Immunologic: Reports GI upset with certain foods PMFSH - History History Provided By: Patient - Medical History Medical History: Medical History (Last Updated 06/17/18 @ 14:59 by Renzo Valerio) Asthma Depression Diabetes Hypertension - Family History Family History: Family History (Last Updated 06/17/18 @ 17:33 by Eliu Alonso MD) Other Osteoarthritis - Tobacco History Second Hand Smoke Exposure: No Tobacco Use In Past 30 Days: No Smoking Status: Never smoker - Alcohol History How Often Do You Have a Drink Containing Alcohol: 2 to 4 times a month - Substance Use History Substance History: No History of Abuse - Travel History Recent Travel in the [place] Within the Last 8 Weeks: No Recent Travel Out of the Country Within the Last 8 Weeks: No - Immunization History Tetanus Immunization: <5 Years Hx Influenza Vaccine This Season: Yes Medications and Allergies Active Medications: Active Medications Al Hydroxide/Mg Hydroxide (Milk Of Magncarolyn Liq) 30 ml PO Q12H PRN PRN Reason: Mild Constipation Dextrose (D50w Vial) 50 ml IV.PUSH UNSCH PRN PRN Reason: PER HYPOGLYCEMIA PROTOCOL Glucagon (Glucagon Inj) 1 mg OTHER UNSCH PRN PRN Reason: for Hypoglycemia Protocol Sodium Chloride (Ns Inj) 1,000 mls @ 125 mls/hr IV.CONT .Q8H ALEKSANDR Last Admin: 06/17/18 16:50 Dose: 125 mls/hr Ceftriaxone Sodium 1,000 mg/ (Sodium Chloride) 100 mls @ 200 mls/hr IV.SIG Q24H ALEKSANDR Insulin Aspart (Novolog Insulin Correctional Sugar Inj) 0 unit SQ ACHS ALEKSANDR; Protocol Lactobacillus Acidophilus (Lactinex) 1 tab PO TID ALEKSANDR Ondansetron HCl (Zofran Inj) 4 mg IV.PUSH Q6H PRN PRN Reason: NAUSEA OR VOMITING Sodium Chloride (Ns Flush) 2 ml IV.FLUSH PRN PRN PRN Reason: FLUSH AFTER USING IV ACCESS Allergies Allergy/AdvReac Type Severity Reaction Status Date / Time aspirin Allergy Severe RASH Verified 07/08/17 08:40 ibuprofen Allergy Severe HIVES Verified 07/08/17 08:40 Home Medications Medication Instructions Recorded Confirmed Type gabapentin 300 mg PO QID 06/17/18 06/17/18 History insulin glargine [Lantus U-100 31 units SUB-Q HS 06/17/18 06/17/18 History Insulin] levothyroxine 100 mcg PO DAILY 06/17/18 06/17/18 History linagliptin [Tradjenta] 5 mg PO DAILY 06/17/18 06/17/18 History lisinopril 5 mg PO DAILY 06/17/18 06/17/18 History metformin 1,000 mg PO BID 06/17/18 06/17/18 History rosuvastatin [Crestor] 5 mg PO DAILY 06/17/18 06/17/18 History Exam Vital signs: Vital Signs 06/17/18 12:51 06/17/18 13:03 06/17/18 16:10 Temperature 97.9 F Pulse Rate 108 H 97 H 98 H Respiratory Rate 18 18 16 Blood Pressure 152/61 H 172/85 H 174/77 H Pulse Oximetry 96 98 100 06/17/18 16:50 06/17/18 19:13 Temperature 97.5 F L Pulse Rate 98 H 91 H Respiratory Rate 16 16 Blood Pressure 174/77 H 147/76 H Pulse Oximetry 100 98 Intake & Output 06/17/18 06/17/18 06/18/18 06:59 18:59 06:59 Weight 101.151 kg - Constitutional no acute distress - Routine HEENT Exam Head: Present: normocephalic Eye: Present: EOMI, PERRL - Routine Neck Exam Present: supple - Routine Respiratory Exam Present: CTA bilaterally - Routine Cardiovascular Exam Present: RRR - Routine Abdominal Exam Present: soft, normoactive bowel sounds - Routine Extremities Exam Present: full ROM, pulses intact - Routine Neurological Exam Present: alert, oriented X3 Results - Lab Results 06/17/18 13:20 06/17/18 19:58 Most recent lab results Calcium 9.0 mg/dL (8.5-10.1) 06/17/18 13:20 Assessment and Plan - Assessment (1) Diabetes Code(s): E11.9 - Type 2 diabetes mellitus without complications Status: Acute (2) Acute renal failure Code(s): N17.9 - Acute kidney failure, unspecified Status: Acute (3) Acute hyperkalemia Code(s): E87.5 - Hyperkalemia Status: Acute - Plan Acute renal failure, I reviewed CT scan did not reveal any acute obstruction or kidney lesion, most likely has reaction to Naprosyn, she is on COLT inhibitor combinations and lead to prerenal azotemia and hyperkalemia Other possibility should be considered like acute interstitial nephritis I have discussed with her rehab to follow serial blood work This may resolve with hydration and office of nonsteroidal anti-inflammatory drug Avoid COLT inhibitors Avoid nephrotoxins KEN, renal panel, C3, C4 Urine protein Ultrasound of the kidney and urine culture Rule out urinary tract infection (2) Acute renal failure Qualifiers: Acute renal failure type: unspecified Qualified Code(s): N17.9 - Acute kidney failure, unspecified
[2018-06-17] MEDS: Insulin NovoLOG Aspart Correctional Sugar Inj SQ SCH ×2 (20:09→22:32)
[2018-06-17] MEDS: Lactobacillus Acidophilus/L. Spores Tablet PO SCH (20:10)
[2018-06-17 20:43] LABS: Albumin 3.1 g/dL (3.4-5.0); Calcium 8.3 mg/dL (8.5-10.1); Carbon Dioxide 22.5 meq/L (21.0-32.0); Potassium 5.1 meq/L (3.5-5.1)
--- NOTE | 2018-06-17 22:25 | US ---
EXAM DATE: 06/17/2018 9:59 PM EDT AGE/SEX: 57 years / Female INDICATIONS: Increased BUN and Creatinine. CLINICAL DATA: This is the patient's initial encounter. Patient reports that signs and symptoms have been present for 1 week and indicates a pain score of 0/10. MEDICAL/SURGICAL HISTORY: Diabetes. Hypertension. Asthma. Appendectomy. COMPARISON: [facility] [place], CT ABDOMEN & PELVIS W/O CONTRAST, 06/17/2018. . MEASUREMENTS: Right Kidney:__11.5 x 6.0 x 5.4 cm Left Kidney:__11.5 x 7.0 x 5.6 cm FINDINGS: Right Kidney: Normal echotexture and cortical thickness. No mass or hydronephrosis. Left Kidney: Normal echotexture and cortical thickness. No mass or hydronephrosis. Bladder: Within normal limits given the degree of distension. Other: There is fatty infiltration of the liver. CONCLUSION: 1. Unremarkable kidneys and urinary bladder. 2. Fatty infiltration of the liver. Electronically signed by: Donnell Patel MD 06/17/2018 10:24 PM EDT
[2018-06-17] MEDS ORDERED: Acetaminophen 325 MG Tablet PO PRN (23:47)
[2018-06-18] MEDS: Levothyroxine 100 MCG Tablet PO SCH (06:32)
[2018-06-18] MEDS: Sod Chloride 0.9% Inj 1,000 ML IV.CONT SCH ×3 (06:33→17:14)
[2018-06-18 08:22] LABS: Baso # (Auto) 0.1 th/mm3 (0.0-0.2); Baso % (Auto) 0.7 % (0.0-2.0); Eos # (Auto) 0.3 th/mm3 (0.0-0.4); Eos % (Auto) 3.4 % (0.0-4.0); Hematocrit 34.3 % (35.0-46.0); Hemoglobin 11.9 gm/dL (11.6-15.3); Lymph # (Auto) 1.9 th/mm3 (1.0-4.8); Lymph % (Auto) 20.6 % (9.0-44.0); Mean Corpuscular HGB Conc 34.5 % (32.0-36.0); Mean Corpuscular Hemoglobin 32.2 pg (27.0-34.0); Mean Corpuscular Volume 93.1 fL (80.0-100.0); Mean Platelet Volume 8.1 fL (7.0-11.0); Mono # (Auto) 0.7 th/mm3 (0.0-0.9); Neut # (Auto) 6.1 th/mm3 (1.8-7.7); Neut % (Auto) 67.3 % (16.0-70.0); Platelet Count 235 th/mm3 (150-450); Red Blood Count 3.69 mil/mm3 (4.00-5.30); Red Cell Distribution Width 12.5 % (11.6-17.2); White Blood Count 9.1 th/mm3 (4.0-11.0)
[2018-06-18] MEDS: Insulin NovoLOG Aspart Correctional Sugar Inj SQ SCH ×4 (08:37→22:30)
[2018-06-18] MEDS: Lactobacillus Acidophilus/L. Spores Tablet PO SCH ×3 (08:38→17:15)
[2018-06-18 08:49] LABS: Alanine Aminotransferase 13 U/L (10-53); Albumin 2.8 g/dL (3.4-5.0); Anion Gap 11 meq/L (5-15); Aspartate Aminotransferase 14 U/L (15-37); Blood Urea Nitrogen 72 mg/dL (7-18); Calcium 8.1 mg/dL (8.5-10.1); Carbon Dioxide 24.5 meq/L (21.0-32.0); Chloride 112 meq/L (98-107); Glomerular Filtration Rate 6 mL/min (>89); Glucose,Random 114 mg/dL (74-106); Potassium 5.1 meq/L (3.5-5.1); Sodium 147 meq/L (136-145)
[2018-06-18 08:52] LABS: Alkaline Phosphatase 62 U/L (45-117); Total Protein 6.6 g/dL (6.4-8.2)
--- NOTE | 2018-06-18 14:13 | P.PN ---
Subjective Interval history: Follow-up acute renal injury June 18, 2018-patient seen and examined, she complains of epigastric burning otherwise denies any chest pain or shortness of breath. Slight improvement of renal indices Physical Exam Vital signs: Vital Signs 06/17/18 16:10 06/17/18 16:50 06/17/18 19:13 Temperature 97.5 F L Pulse Rate 98 H 98 H 91 H Respiratory Rate 16 16 16 Blood Pressure 174/77 H 174/77 H 147/76 H Pulse Oximetry 100 100 98 06/17/18 20:00 06/18/18 00:00 06/18/18 04:00 Temperature 98.1 F 98.3 F 98.5 F Pulse Rate 93 H 93 H 84 Respiratory Rate 20 20 20 Blood Pressure 170/82 H 138/73 142/68 H Pulse Oximetry 97 99 99 06/18/18 08:00 06/18/18 12:00 Temperature 97.8 F 97.7 F Pulse Rate 80 79 Respiratory Rate 18 18 Blood Pressure 165/85 H 134/62 Pulse Oximetry 97 97 Intake & Output 06/17/18 06/18/18 06/18/18 18:59 06:59 18:59 Intake Total 100 / 100 3320 / 3320 1000 / 1000 Output Total 3000 / 3000 Balance 100 / 100 320 / 320 1000 / 1000 Weight 101.151 kg 101.2 kg Intake: IV 100 / 100 2100 / 2100 1000 / 1000 NS Inj 1,000 ML @ 125 mls/hr IV 1000 / 1000 1000 / 1000 .CONT .Q8H ALEKSANDR Rx#:[id number] Rocephin Inj 1,000 MG In NS Inj 100 / 100 100 / 100 100 ML @ 200 mls/hr IV.SIG Q24H ALEKSANDR Rx#:[id number] Oral 1220 / 1220 Output: Urine 3000 / 3000 Urine/Stool Mix 0 / 0 Other: # Voids 1 Date of Last Bowel Movement 06/16/18 06/17/18 06/18/18 Weight On Admission 101.151 kg Narrative: GENERAL: NAD SKIN: Warm and dry. HEAD: Normocephalic. EYES: No scleral icterus. No injection or drainage. NECK: Supple, trachea midline. No JVD or lymphadenopathy. CARDIOVASCULAR: Regular rate and rhythm without murmurs, gallops, or rubs. RESPIRATORY: Breath sounds equal bilaterally. No accessory muscle use. GASTROINTESTINAL: Abdomen soft, non-tender, nondistended. MUSCULOSKELETAL: No cyanosis, or edema. BACK: Nontender without obvious deformity. No CVA tenderness. Results - Labs CBC & Chem 7: 06/18/18 07:31 06/18/18 07:31 Laboratory Results - last 24 hr 06/17/18 06/17/18 06/17/18 13:20 14:56 14:56 WBC RBC Hgb Hct MCV MCH MCHC RDW Plt Count MPV Neut % (Auto) Lymph % (Auto) Leon % (Auto) Eos % (Auto) Baso % (Auto) Neut # (Auto) Lymph # (Auto) Leon # (Auto) Eos # (Auto) Baso # (Auto) WBC Differential Differential Comment PT 9.7 L INR 1.0 APTT 25.0 Sodium 140 Potassium 6.3 H Chloride 106 Carbon Dioxide 18.6 L Anion Gap 15 BUN 85 H Creatinine 8.57 H Estimated GFR 5 L POC Glucose Random Glucose 180 H Calcium 9.0 Phosphorus Total Bilirubin 0.4 AST 17 ALT 17 Alkaline Phosphatase 85 Total Creatine Kinase 48 Troponin I Less than 0.02 L Total Protein 8.0 Albumin 3.4 Lipase 145 131 Urine Color Urine Clarity Urine pH Ur Specific [place] Urine Protein Urine Glucose (UA) Urine Ketones Urine Occult Blood Urine Nitrate Urine Bilirubin Urine Urobilinogen Ur Leukocyte Esterase Urine RBC Urine WBC Ur Squamous Epith Cells Urine Bacteria Hyaline Casts Micro UA Comment Ur Microscopic Review Urine Culture Comments Complement C3 Complement C4 06/17/18 06/17/18 06/18/18 14:56 19:58 07:31 WBC 9.1 RBC 3.69 L Hgb 11.9 Hct 34.3 L MCV 93.1 MCH 32.2 MCHC 34.5 RDW 12.5 Plt Count 235 MPV 8.1 Neut % (Auto) 67.3 Lymph % (Auto) 20.6 Leon % (Auto) 8.0 Eos % (Auto) 3.4 Baso % (Auto) 0.7 Neut # (Auto) 6.1 Lymph # (Auto) 1.9 Leon # (Auto) 0.7 Eos # (Auto) 0.3 Baso # (Auto) 0.1 WBC Differential . Differential Comment Auto diff final PT INR APTT Sodium 141 Potassium 5.1 D Chloride 108 H Carbon Dioxide 22.5 Anion Gap 11 BUN 81 H Creatinine 7.38 H Estimated GFR 6 L POC Glucose Random Glucose 84 Calcium 8.3 L Phosphorus 5.0 H Total Bilirubin AST ALT Alkaline Phosphatase Total Creatine Kinase Troponin I Total Protein Albumin 3.1 L Lipase Urine Color Yellow Urine Clarity Cloudy H Urine pH 5.0 Ur Specific [place] 1.013 Urine Protein 30 H Urine Glucose (UA) Negative Urine Ketones Negative Urine Occult Blood Small H Urine Nitrate Negative Urine Bilirubin Negative Urine Urobilinogen Less than 2 Ur Leukocyte Esterase Trace H Urine RBC 1 Urine WBC 9 H Ur Squamous Epith Cells 2 Urine Bacteria Rare H Hyaline Casts 1 Micro UA Comment Culture indicated Ur Microscopic Review Not Reportable Urine Culture Comments Culture indicated Complement C3 132 Complement C4 30 06/18/18 06/18/18 06/18/18 07:31 07:31 08:37 WBC RBC Hgb Hct MCV MCH MCHC RDW Plt Count MPV Neut % (Auto) Lymph % (Auto) Leon % (Auto) Eos % (Auto) Baso % (Auto) Neut # (Auto) Lymph # (Auto) Leon # (Auto) Eos # (Auto) Baso # (Auto) WBC Differential Differential Comment PT INR APTT Sodium 147 H Potassium 5.1 Chloride 112 H Carbon Dioxide 24.5 Anion Gap 11 BUN 72 H Creatinine 7.21 H Estimated GFR 6 L POC Glucose 120 H Random Glucose 114 H Calcium 8.1 L Phosphorus Total Bilirubin 0.3 AST 14 L ALT 13 Alkaline Phosphatase 62 Total Creatine Kinase Troponin I Less than 0.02 L Total Protein 6.6 D Albumin 2.8 L Lipase Urine Color Urine Clarity Urine pH Ur Specific [place] Urine Protein Urine Glucose (UA) Urine Ketones Urine Occult Blood Urine Nitrate Urine Bilirubin Urine Urobilinogen Ur Leukocyte Esterase Urine RBC Urine WBC Ur Squamous Epith Cells Urine Bacteria Hyaline Casts Micro UA Comment Ur Microscopic Review Urine Culture Comments Complement C3 Complement C4 06/18/18 12:16 WBC RBC Hgb Hct MCV MCH MCHC RDW Plt Count MPV Neut % (Auto) Lymph % (Auto) Leon % (Auto) Eos % (Auto) Baso % (Auto) Neut # (Auto) Lymph # (Auto) Leon # (Auto) Eos # (Auto) Baso # (Auto) WBC Differential Differential Comment PT INR APTT Sodium Potassium Chloride Carbon Dioxide Anion Gap BUN Creatinine Estimated GFR POC Glucose 180 H Random Glucose Calcium Phosphorus Total Bilirubin AST ALT Alkaline Phosphatase Total Creatine Kinase Troponin I Total Protein Albumin Lipase Urine Color Urine Clarity Urine pH Ur Specific [place] Urine Protein Urine Glucose (UA) Urine Ketones Urine Occult Blood Urine Nitrate Urine Bilirubin Urine Urobilinogen Ur Leukocyte Esterase Urine RBC Urine WBC Ur Squamous Epith Cells Urine Bacteria Hyaline Casts Micro UA Comment Ur Microscopic Review Urine Culture Comments Complement C3 Complement C4 Microbiology 06/17/18 14:56 Clean Catch Urine Urine Culture - Preliminary Immature growth - reincubate - Imaging Impressions Abdomen/Bladder Ultrasound 06/17/18 00:00 CONCLUSION: 1. Unremarkable kidneys and urinary bladder. 2. Fatty infiltration of the liver. Abdomen/Pelvis CT 06/17/18 14:33 CONCLUSION: 1. Negative for an acute process Assessment and Plan - Assessment (1) Acute renal failure Code(s): N17.9 - Acute kidney failure, unspecified Status: Acute (2) Acute hyperkalemia Code(s): E87.5 - Hyperkalemia Status: Acute - Plan 57-year-old female with Acute renal failure Etiology may be related to NSAIDs Renal ultrasound unremarkable Appreciate input from nephrology Continue with IV fluid hydration Monitor BUN and creatinine, and avoid all nephrotoxic drug Hyperkalemia Treated with IV hydration, insulin, and calcium gluconate in the ER Continue to monitor potassium, treat Kayexalate for K>5.6 Plantar fasciitis Follows an outpatient with podiatry Hypertension Continue baseline treatment Diabetes mellitus type 2 Follow blood sugars Insulin sliding scale DVT prophylaxis SCDs (1) Acute renal failure Qualifiers: Acute renal failure type: unspecified Qualified Code(s): N17.9 - Acute kidney failure, unspecified
--- NOTE | 2018-06-18 17:00 | P.PNNP ---
Subjective Interval history: Patient feels better epigastric pain has improved Physical Exam Vital signs: Vital Signs 06/17/18 19:13 06/17/18 20:00 06/18/18 00:00 Temperature 97.5 F L 98.1 F 98.3 F Pulse Rate 91 H 93 H 93 H Respiratory Rate 16 20 20 Blood Pressure 147/76 H 170/82 H 138/73 Pulse Oximetry 98 97 99 06/18/18 04:00 06/18/18 08:00 06/18/18 12:00 Temperature 98.5 F 97.8 F 97.7 F Pulse Rate 84 80 79 Respiratory Rate 20 18 18 Blood Pressure 142/68 H 165/85 H 134/62 Pulse Oximetry 99 97 97 Intake & Output 06/17/18 06/18/18 06/18/18 18:59 06:59 18:59 Intake Total 100 / 100 3320 / 3320 1000 / 1000 Output Total 3000 / 3000 Balance 100 / 100 320 / 320 1000 / 1000 Weight 101.151 kg 101.2 kg Intake: IV 100 / 100 2100 / 2100 1000 / 1000 NS Inj 1,000 ML @ 125 mls/hr IV 1000 / 1000 1000 / 1000 .CONT .Q8H [facility] Rx#:[id number] Rocephin Inj 1,000 MG In NS Inj 100 / 100 100 / 100 100 ML @ 200 mls/hr IV.SIG Q24H [facility] Rx#:[id number] Oral 1220 / 1220 Output: Urine 3000 / 3000 Urine/Stool Mix 0 / 0 Other: # Voids 1 Date of Last Bowel Movement 06/16/18 06/17/18 06/18/18 Weight On Admission 101.151 kg - Constitutional no acute distress - Routine HEENT Exam Head: Present: normocephalic Eye: Present: EOMI - Routine Neck Exam Present: supple - Routine Respiratory Exam Present: CTA bilaterally - Routine Cardiovascular Exam Present: RRR - Routine Abdominal Exam Present: soft, normoactive bowel sounds - Routine Extremities Exam Present: pulses intact Assessment and Plan - Assessment (1) Diabetes Code(s): E11.9 - Type 2 diabetes mellitus without complications Status: Acute (2) Acute renal failure Code(s): N17.9 - Acute kidney failure, unspecified Status: Acute Qualifiers: Acute renal failure type: unspecified Qualified Code(s): N17.9 - Acute kidney failure, unspecified (3) Acute hyperkalemia Code(s): E87.5 - Hyperkalemia Status: Acute - Plan Acute renal failure, norms steroidal anti-inflammatory and COLT inhibitor combinations and lead to prerenal azotemia and hyperkalemia Patient has reaction to Naprosyn in combination with COLT inhibitor because renal failure It is reversible Creatinine is declining Continue to hydrate and follow BMP
[2018-06-19] MEDS: Sod Chloride 0.9% Inj 1,000 ML IV.CONT SCH ×4 (02:38→21:14)
[2018-06-19] MEDS: Levothyroxine 100 MCG Tablet PO SCH (05:39)
[2018-06-19 07:11] LABS: Alanine Aminotransferase 12 U/L (10-53); Albumin 2.8 g/dL (3.4-5.0); Alkaline Phosphatase 57 U/L (45-117); Anion Gap 10 meq/L (5-15); Aspartate Aminotransferase 12 U/L (15-37); Blood Urea Nitrogen 55 mg/dL (7-18); Calcium 8.2 mg/dL (8.5-10.1); Carbon Dioxide 25.8 meq/L (21.0-32.0); Chloride 112 meq/L (98-107); Glomerular Filtration Rate 8 mL/min (>89); Glucose,Random 103 mg/dL (74-106); Potassium 4.1 meq/L (3.5-5.1); Sodium 148 meq/L (136-145); Total Protein 6.6 g/dL (6.4-8.2)
[2018-06-19] MEDS: Lactobacillus Acidophilus/L. Spores Tablet PO SCH ×3 (09:44→17:19)
[2018-06-19] MEDS: Insulin NovoLOG Aspart Correctional Sugar Inj SQ SCH ×4 (09:45→21:14)
--- NOTE | 2018-06-19 11:49 | P.PN ---
Subjective Interval history: Follow-up acute renal injury June 18, 2018-patient seen and examined, she complains of epigastric burning otherwise denies any chest pain or shortness of breath. Slight improvement of renal indices June 19, 2018-patient seen and examined, no complaint, renal indices improving. Currently afebrile. Physical Exam Vital signs: Vital Signs 06/18/18 12:00 06/18/18 16:00 06/18/18 20:00 Temperature 97.7 F 98.0 F 98.1 F Pulse Rate 79 78 74 Respiratory Rate 18 Blood Pressure 134/62 143/68 H 138/74 Pulse Oximetry 97 95 96 06/19/18 00:25 06/19/18 03:18 06/19/18 08:00 Temperature 98.4 F 97.9 F 98.3 F Pulse Rate 77 78 73 Respiratory Rate 16 Blood Pressure 125/60 140/69 144/80 H Pulse Oximetry 97 96 96 Intake & Output 06/18/18 06/19/18 06/19/18 18:59 06:59 18:59 Intake Total 2720 / 2720 2703 / 2703 Output Total 800 / 800 0 / 0 Balance 1920 / 1920 2703 / 2703 Weight 101.2 kg Intake: IV 1999 1723 / 1723 NS Inj 1,000 ML @ 125 mls/hr IV 1999 1623 / 1623 .CONT .Q8H [facility] Rx#:[id number] Rocephin Inj 1,000 MG In NS Inj 100 / 100 100 ML @ 200 mls/hr IV.SIG Q24H [facility] Rx#:[id number] Oral 720 / 720 980 / 980 Output: Urine 800 / 800 Urine/Stool Mix 0 / 0 0 / 0 Other: # Voids 1 5 Date of Last Bowel Movement 06/18/18 06/18/18 06/18/18 # Bowel Movements 0 Narrative: GENERAL: NAD SKIN: Warm and dry. HEAD: Normocephalic. EYES: No scleral icterus. No injection or drainage. NECK: Supple, trachea midline. No JVD or lymphadenopathy. CARDIOVASCULAR: Regular rate and rhythm without murmurs, gallops, or rubs. RESPIRATORY: Breath sounds equal bilaterally. No accessory muscle use. GASTROINTESTINAL: Abdomen soft, non-tender, nondistended. MUSCULOSKELETAL: No cyanosis, or edema. BACK: Nontender without obvious deformity. No CVA tenderness. Results - Labs CBC & Chem 7: 06/18/18 07:31 06/19/18 05:09 Laboratory Results - last 24 hr 06/18/18 06/18/18 06/18/18 12:16 16:49 20:35 Sodium Potassium Chloride Carbon Dioxide Anion Gap BUN Creatinine Estimated GFR POC Glucose 180 H 109 171 H Random Glucose Calcium Total Bilirubin AST ALT Alkaline Phosphatase Total Protein Albumin 06/19/18 05:09 Sodium 148 H Potassium 4.1 D Chloride 112 H Carbon Dioxide 25.8 Anion Gap 10 BUN 55 H Creatinine 5.49 H Estimated GFR 8 L POC Glucose Random Glucose 103 Calcium 8.2 L Total Bilirubin 0.3 AST 12 L ALT 12 Alkaline Phosphatase 57 Total Protein 6.6 Albumin 2.8 L Microbiology 06/17/18 14:56 Clean Catch Urine Urine Culture - Final 10-50,000 cfu/mL mixed gram positive homer (probable contaminants) Assessment and Plan - Assessment (1) Acute renal failure Code(s): N17.9 - Acute kidney failure, unspecified Status: Acute (2) Acute hyperkalemia Code(s): E87.5 - Hyperkalemia Status: Acute - Plan 57-year-old female with Acute renal failure Renal indices improving down to 55/5.49 today Etiology may be related to NSAIDs Renal ultrasound unremarkable Appreciate input from nephrology Continue with IV fluid hydration Monitor BUN and creatinine, and avoid all nephrotoxic drug Hyperkalemia Treated with IV hydration, insulin, and calcium gluconate in the ER Now resolved Plantar fasciitis Follows an outpatient with podiatry Hypertension Continue baseline treatment Diabetes mellitus type 2 Follow blood sugars Insulin sliding scale Abnormal UA Discontinue Rocephin as urine culture negative DVT prophylaxis SCDs (1) Acute renal failure Qualifiers: Acute renal failure type: unspecified Qualified Code(s): N17.9 - Acute kidney failure, unspecified
--- NOTE | 2018-06-19 13:04 | ECG ---
Date Performed: 06/17/2018 Time Performed: 15:45:45 PTAGE: 57 years EKG: SINUS TACHYCARDIA MINIMAL ST DEPRESSION ABNORMAL RHYTHM ECG PREVIOUS TRACING : 08/31/2013 13.49 Since the previous tracing, no significant change noted DOCTOR: Seng Martini Interpretating Date/Time 06/19/2018 13:02:08
[2018-06-19 13:36] LABS: Protein/Creatinine Ratio,Urine 0.79 (0.00-0.14)
--- NOTE | 2018-06-19 17:11 | P.PNNP ---
Physical Exam Vital signs: Vital Signs 06/18/18 20:00 06/19/18 00:25 06/19/18 03:18 Temperature 98.1 F 98.4 F 97.9 F Pulse Rate 74 77 78 Respiratory Rate 18 18 18 Blood Pressure 138/74 125/60 140/69 Pulse Oximetry 96 97 96 06/19/18 08:00 06/19/18 12:00 06/19/18 15:56 Temperature 98.3 F 98 F 98.3 F Pulse Rate 73 79 75 Respiratory Rate 16 16 16 Blood Pressure 144/80 H 136/77 130/73 Pulse Oximetry 96 97 Intake & Output 06/18/18 06/19/18 06/19/18 18:59 06:59 18:59 Intake Total 2720 / 2720 2703 / 2703 377 / 377 Output Total 800 / 800 0 / 0 Balance 1920 / 1920 2703 / 2703 377 / 377 Weight 101.2 kg Intake: IV 1999 1723 / 1723 377 / 377 NS Inj 1,000 ML @ 125 mls/hr IV 1999 1623 / 1623 377 / 377 .CONT .Q8H [facility] Rx#:[id number] Rocephin Inj 1,000 MG In NS Inj 100 / 100 100 ML @ 200 mls/hr IV.SIG Q24H [facility] Rx#:[id number] Oral 720 / 720 980 / 980 Output: Urine 800 / 800 Urine/Stool Mix 0 / 0 0 / 0 Other: # Voids 1 5 Date of Last Bowel Movement 06/18/18 06/18/18 06/18/18 # Bowel Movements 0 Narrative: GENERAL: NAD SKIN: Warm and dry. HEAD: Normocephalic. EYES: No scleral icterus. No injection or drainage. NECK: Supple, trachea midline. No JVD or lymphadenopathy. CARDIOVASCULAR: Regular rate and rhythm without murmurs, gallops, or rubs. RESPIRATORY: Breath sounds equal bilaterally. No accessory muscle use. GASTROINTESTINAL: Abdomen soft, non-tender, nondistended. MUSCULOSKELETAL: No cyanosis, or edema. BACK: Nontender without obvious deformity. No CVA tenderness. Assessment and Plan - Assessment (1) Diabetes Code(s): E11.9 - Type 2 diabetes mellitus without complications Status: Acute (2) Acute renal failure Code(s): N17.9 - Acute kidney failure, unspecified Status: Acute Qualifiers: Acute renal failure type: unspecified Qualified Code(s): N17.9 - Acute kidney failure, unspecified (3) Acute hyperkalemia Code(s): E87.5 - Hyperkalemia Status: Acute - Plan Acute renal failure, norms steroidal anti-inflammatory and COLT inhibitor combinations and lead to prerenal azotemia and hyperkalemia Patient has reaction to Naprosyn in combination with COLT inhibitor because renal failure It is reversible Creatinine is declining 5.4 Continue to hydrate and follow BMP
[2018-06-20] MEDS: Sod Chloride 0.9% Inj 1,000 ML IV.CONT SCH ×5 (03:35→23:39)
[2018-06-20] MEDS: Levothyroxine 100 MCG Tablet PO SCH (05:09)
[2018-06-20 07:49] LABS: Alanine Aminotransferase 18 U/L (10-53); Albumin 3.3 g/dL (3.4-5.0); Anion Gap 8 meq/L (5-15); Aspartate Aminotransferase 17 U/L (15-37); Blood Urea Nitrogen 41 mg/dL (7-18); Calcium 8.4 mg/dL (8.5-10.1); Carbon Dioxide 26.4 meq/L (21.0-32.0); Chloride 111 meq/L (98-107); Glomerular Filtration Rate 13 mL/min (>89); Glucose,Random 140 mg/dL (74-106); Sodium 145 meq/L (136-145)
[2018-06-20 08:08] LABS: Alkaline Phosphatase 62 U/L (45-117); Total Protein 7.4 g/dL (6.4-8.2)
[2018-06-20] MEDS: Lactobacillus Acidophilus/L. Spores Tablet PO SCH ×3 (10:06→19:04)
[2018-06-20] MEDS: Insulin NovoLOG Aspart Correctional Sugar Inj SQ SCH ×4 (10:08→20:47)
[2018-06-20] MEDS ORDERED: Glycerin Adult 2 GM Supp RECTAL PRN (12:45)
--- NOTE | 2018-06-20 12:47 | P.PNIM ---
Subjective Interval history: Mrs. Flores was afebrile with mild HTN overnight (SBP 145-161); otherwise stable VS. 4200ml urine output overnight per I/O. Mrs. Flores reports having some constipation; she had 1 small bowel movement this morning. Patient requests additional stool softeners if possible that will not affect her renal function. She has some associated nausea and is trying to eat less; she has been taking some Zofran. No chest pain, shortness of breath, or changes in urine output. Physical Exam Vital signs: Vital Signs 06/19/18 15:56 06/19/18 20:00 06/20/18 00:00 Temperature 98.3 F 99.2 F 98.4 F Pulse Rate 75 92 H 75 Respiratory Rate 16 17 17 Blood Pressure 130/73 161/78 H 148/69 H Pulse Oximetry 97 96 94 L 06/20/18 04:00 Temperature 98.2 F Pulse Rate 81 Respiratory Rate 16 Blood Pressure 145/65 H Pulse Oximetry 95 Intake & Output 06/19/18 06/20/18 06/20/18 18:59 06:59 18:59 Intake Total 1877 / 1877 2200 / 2200 Output Total 4200 / 4200 Balance -2323 / -2323 2200 / 2200 Weight 101.21 kg Intake: IV 377 / 377 1999 NS Inj 1,000 ML @ 125 mls/hr IV 377 / 377 1999 .CONT .Q8H [facility] Rx#:[id number] Oral 1500 / 1500 200 / 200 Output: Urine 4200 / 4200 Other: Date of Last Bowel Movement 06/18/18 06/17/18 # Bowel Movements 0 Narrative: GENERAL: NAD SKIN: Warm and dry. No visible lesions HEAD: Normocephalic. EYES: EOM grossly I NECK: No JVD or lymphadenopathy. CARDIOVASCULAR: Regular rate and rhythm without murmurs. Normal perfusion RESPIRATORY: CTAB; normal rate GASTROINTESTINAL: Abdomen soft, non-tender, nondistended. MUSCULOSKELETAL: No LE edema; no calf asymmetry Neuro: Awake, alert. Grossly normal CN. Grossly normal peripheral motor/sensory function Results - Labs CBC & Chem 7: 06/18/18 07:31 06/20/18 05:37 Laboratory Results - last 24 hr 06/17/18 06/19/18 06/19/18 14:56 12:26 16:55 Sodium Potassium Chloride Carbon Dioxide Anion Gap BUN Creatinine Estimated GFR POC Glucose 128 H 102 Random Glucose Calcium Total Bilirubin AST ALT Alkaline Phosphatase Total Protein Albumin Ur Random Creatinine 116 U Random Total Protein 91.3 H Protein/Creatinin Ratio 0.79 H 06/19/18 06/20/18 21:12 05:37 Sodium 145 Potassium 4.0 Chloride 111 H Carbon Dioxide 26.4 Anion Gap 8 BUN 41 H Creatinine 3.52 H Estimated GFR 13 L POC Glucose 196 H Random Glucose 140 H Calcium 8.4 L Total Bilirubin 0.4 AST 17 ALT 18 Alkaline Phosphatase 62 Total Protein 7.4 D Albumin 3.3 L Ur Random Creatinine U Random Total Protein Protein/Creatinin Ratio Microbiology 06/17/18 14:56 Clean Catch Urine Urine Culture - Final 10-50,000 cfu/mL mixed gram positive homer (probable contaminants) Assessment and Plan - Assessment (1) Acute renal failure Code(s): N17.9 - Acute kidney failure, unspecified Status: Acute (2) Acute hyperkalemia Code(s): E87.5 - Hyperkalemia Status: Acute - Plan Mrs. Flores is a 57-year-old female with: Acute renal failure Hyperkalemia Impression: Suspect acute renal failure secondary to NSAID and COLT combination with associated hyperkalemia and prerenal azotemia Renal US unremarkable Cr- 8.57 (06/17)-> 3.52 (06/20) K- 6.3 (06/17)-> 4 (06/20) -Nephrology consulted -Continue IV NS at 125ml/hr -Continue to trend BMP and address electrolyte abnormalities as needed -Hyperkalemia resolved at this time; initially treated with IV hydration, insulin, calcium gluconate on admission Constipation Impression: Patient reports small BM and associated nausea which she suspects is constipation -continue PRN Milk of magnesia -Continue PRN Zofran for nausea -Will schedule Miralax -PRN suppository if needed per request Plantar fasciitis Follows an outpatient with podiatry Hypertension Impression: Mild HTN during hospitalization -COLT held Diabetes mellitus type 2 Follow blood sugars Insulin sliding scale Abnormal UA Impression: UA on admission suggestive of UTI; culture negative. -s/p Rocephin (stopped when culture negative) DVT prophylaxis SCDs Code Status: Full code Discharge Planning: Pending renal function improvement/Nephrology clearance (1) Acute renal failure Qualifiers: Acute renal failure type: unspecified Qualified Code(s): N17.9 - Acute kidney failure, unspecified
[2018-06-20 16:28] LABS: Anti-Nuclear Antibody Screen Pos (Neg)
[2018-06-20] MEDS: Polyethylene Glycol 3350 17 GM Packet PO SCH (18:56)
--- NOTE | 2018-06-20 18:57 | P.PNNP ---
Subjective Interval history: Patient feels better denies any shortness of breath Physical Exam Vital signs: Vital Signs 06/19/18 20:00 06/20/18 00:00 06/20/18 04:00 Temperature 99.2 F 98.4 F 98.2 F Pulse Rate 92 H 75 81 Respiratory Rate 17 17 16 Blood Pressure 161/78 H 148/69 H 145/65 H Pulse Oximetry 96 94 L 95 06/20/18 08:00 06/20/18 12:00 06/20/18 16:00 Temperature 97.8 F 97.3 F L 98.3 F Pulse Rate 77 74 71 Respiratory Rate 17 16 16 Blood Pressure 170/76 H 163/74 H 167/73 H Pulse Oximetry 97 95 97 Intake & Output 06/19/18 06/20/18 06/20/18 18:59 06:59 18:59 Intake Total 1877 / 1877 2200 / 2200 1360 / 1360 Output Total 4200 / 4200 Balance -2323 / -2323 2200 / 2200 1360 / 1360 Weight 101.21 kg Intake: IV 377 / 377 1999 / 1999 1000 / 1000 NS Inj 1,000 ML @ 125 mls/hr IV 377 / 377 1999 / 1999 1000 / 1000 .CONT .Q8H [facility] Rx#:[id number] Oral 1500 / 1500 200 / 200 360 / 360 Output: Urine 4200 / 4200 Other: # Voids 3 Date of Last Bowel Movement 06/18/18 06/17/18 06/20/18 # Bowel Movements 0 1 - Constitutional no acute distress - Routine HEENT Exam Head: Present: normocephalic Eye: Present: EOMI - Routine Neck Exam Present: supple - Routine Cardiovascular Exam Present: RRR - Routine Abdominal Exam Present: soft, normoactive bowel sounds - Routine Extremities Exam Present: full ROM Assessment and Plan - Assessment (1) Diabetes Code(s): E11.9 - Type 2 diabetes mellitus without complications Status: Acute (2) Acute renal failure Code(s): N17.9 - Acute kidney failure, unspecified Status: Acute Qualifiers: Acute renal failure type: unspecified Qualified Code(s): N17.9 - Acute kidney failure, unspecified (3) Acute hyperkalemia Code(s): E87.5 - Hyperkalemia Status: Acute - Plan Acute renal failure, steroidal anti-inflammatory and COLT inhibitor combinations and lead to prerenal azotemia and hyperkalemia Patient has reaction to Naprosyn in combination with COLT inhibitor cause renal failure It is reversible Creatinine is declining 3.5 Continue to hydrate and follow BMP Restart gabapentin 300 mg at nighttime She states that she lived in [place] and will like to follow her primary care physician and [place] special [place] I will sign off she can be discharged from nephrology point of view
[2018-06-20] MEDS ORDERED: Gabapentin 300 MG Capsule PO SCH (21:00)
[2018-06-21] MEDS: Sod Chloride 0.9% Inj 1,000 ML IV.CONT SCH ×2 (03:35→10:49)
[2018-06-21] MEDS: Levothyroxine 100 MCG Tablet PO SCH (05:53)
[2018-06-21] MEDS: Lactobacillus Acidophilus/L. Spores Tablet PO SCH (08:39)
[2018-06-21] MEDS: Polyethylene Glycol 3350 17 GM Packet PO SCH (08:40)
[2018-06-21] MEDS: Insulin NovoLOG Aspart Correctional Sugar Inj SQ SCH (08:40)
[2018-06-21 09:56] LABS: Baso # (Auto) 0.1 th/mm3 (0.0-0.2); Baso % (Auto) 0.6 % (0.0-2.0); Eos # (Auto) 0.3 th/mm3 (0.0-0.4); Eos % (Auto) 3.2 % (0.0-4.0); Hematocrit 33.5 % (35.0-46.0); Hemoglobin 11.5 gm/dL (11.6-15.3); Lymph % (Auto) 23.3 % (9.0-44.0); Mean Corpuscular HGB Conc 34.4 % (32.0-36.0); Mean Corpuscular Hemoglobin 31.9 pg (27.0-34.0); Mean Corpuscular Volume 92.6 fL (80.0-100.0); Mono # (Auto) 0.5 th/mm3 (0.0-0.9); Mono % (Auto) 5.3 % (0.0-8.0); Neut # (Auto) 5.8 th/mm3 (1.8-7.7); Neut % (Auto) 67.6 % (16.0-70.0); Platelet Count 245 th/mm3 (150-450); Red Blood Count 3.62 mil/mm3 (4.00-5.30); Red Cell Distribution Width 12.5 % (11.6-17.2); White Blood Count 8.6 th/mm3 (4.0-11.0)
[2018-06-21 10:29] LABS: Calcium 8.6 mg/dL (8.5-10.1); Carbon Dioxide 25.8 meq/L (21.0-32.0); Potassium 3.7 meq/L (3.5-5.1)
--- NOTE | 2018-06-21 15:25 | P.PNIM ---
Subjective Interval history: Patient doing well, desires discharge, feeding voiding stooling well with no concerns Physical Exam Vital signs: Vital Signs 06/20/18 16:00 06/20/18 19:00 06/21/18 00:59 Temperature 98.3 F 98.2 F 98.3 F Pulse Rate 71 80 71 Respiratory Rate 16 18 18 Blood Pressure 167/73 H 176/78 H 126/60 Pulse Oximetry 97 96 97 06/21/18 08:00 06/21/18 12:00 Temperature 98.5 F 97.8 F Pulse Rate 69 74 Respiratory Rate 18 18 Blood Pressure 138/74 163/81 H Pulse Oximetry 96 96 Intake & Output 06/20/18 06/21/18 06/21/18 18:59 06:59 18:59 Intake Total 1360 / 1360 1360 / 1360 Output Total 1900 / 1900 Balance 1360 / 1360 -540 / -540 Intake: IV 1000 / 1000 1000 / 1000 NS Inj 1,000 ML @ 125 mls/hr IV 1000 / 1000 1000 / 1000 .CONT .Q8H [facility] Rx#:[id number] Oral 360 / 360 360 / 360 Output: Urine 1900 / 1900 Other: # Voids 3 Date of Last Bowel Movement 06/20/18 06/20/18 06/21/18 # Bowel Movements 1 0 Narrative: GENERAL: lying comfortably, in no distress SKIN: Warm and dry. HEAD: Normocephalic. EYES: No scleral icterus. No injection or drainage. NECK: Supple, trachea midline. No JVD or lymphadenopathy. CARDIOVASCULAR: Regular rate and rhythm without murmurs, gallops, or rubs. RESPIRATORY: Breath sounds equal bilaterally. No accessory muscle use. GASTROINTESTINAL: Abdomen soft, non-tender, nondistended. MUSCULOSKELETAL: No cyanosis, or edema. BACK: Nontender without obvious deformity. No CVA tenderness. Results - Labs CBC & Chem 7: 06/21/18 07:30 06/21/18 07:30 Laboratory Results - last 24 hr 06/17/18 06/20/18 06/20/18 19:58 18:01 20:44 WBC RBC Hgb Hct MCV MCH MCHC RDW Plt Count MPV Neut % (Auto) Lymph % (Auto) [place] % (Auto) Eos % (Auto) Baso % (Auto) Neut # (Auto) Lymph # (Auto) [place] # (Auto) Eos # (Auto) Baso # (Auto) WBC Differential Differential Comment Sodium Potassium Chloride Carbon Dioxide Anion Gap BUN Creatinine Estimated GFR POC Glucose 138 H 128 H Random Glucose Calcium KEN Screen Pos H 06/21/18 06/21/18 06/21/18 07:30 07:30 08:29 WBC 8.6 RBC 3.62 L Hgb 11.5 L Hct 33.5 L MCV 92.6 MCH 31.9 MCHC 34.4 RDW 12.5 Plt Count 245 MPV 8.0 Neut % (Auto) 67.6 Lymph % (Auto) 23.3 [place] % (Auto) 5.3 Eos % (Auto) 3.2 Baso % (Auto) 0.6 Neut # (Auto) 5.8 Lymph # (Auto) 2.0 [place] # (Auto) 0.5 Eos # (Auto) 0.3 Baso # (Auto) 0.1 WBC Differential . Differential Comment Auto diff final Sodium 147 H Potassium 3.7 Chloride 112 H Carbon Dioxide 25.8 Anion Gap 9 BUN 23 H Creatinine 2.12 H Estimated GFR 24 L POC Glucose 184 H Random Glucose 142 H Calcium 8.6 KEN Screen Assessment and Plan - Assessment (1) Acute renal failure Code(s): N17.9 - Acute kidney failure, unspecified Status: Acute (2) Acute hyperkalemia Code(s): E87.5 - Hyperkalemia Status: Resolved - Plan 57-year-old female with past medical history of insulin-dependent diabetes hypertension hyperlipidemia and hypothyroidism admitted for inpatient management acute kidney injury due to Naprosyn and COLT use, s/p IVF and doing well, HD#4 1. 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 Avoid naproxen. 2. Hyperkalemia: resolved, due to SERAFIN 3. Hypertension: mild, BP held, can resume as an OP once creatinine improves. 4. Diabetes mellitus type 2: on lantus and SSI, holding metformin, BS stable 5. 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 (1) Acute renal failure Qualifiers: Acute renal failure type: unspecified Qualified Code(s): N17.9 - Acute kidney failure, unspecified
--- NOTE | 2018-06-21 20:33 | P.DS ---
Date of admission: 06/17/18 16:47 Primary care physician: Tariq Schroeder MD Brief History from admission: This is a 57-year-old CF with PMHx of Diabetes on Lantus and Metformin and HTN on COLT, patient presented with facial numbness and was found to have a Creatinine of 8.57 and potassium of 6.3. No hx of previous. Admits to naproxen use. Patient update on day of discharge: 1. Acute renal failure: improved s/p IVF's, Creat 2.12 from 3.53, per nephrology stable for discharge, patient advised that she needs a BMP from her rehab care assistant or her primary care doctor in the next 1-2 days as well as a follow-up visit. Avoid naproxen. 2. Hyperkalemia: resolved, due to SERAFIN DS: Diagnosis - Discharge Diagnosis (1) Acute renal failure Status: Resolved (2) Acute hyperkalemia Status: Resolved DS: Medications - Discharge Medications Prescriptions: insulin aspart U-100 [Novolog U-100 Insulin aspart] See Label Instructions .ROUTE .COMPLEX #10 ml insulin regular human 1 sliding scale dose SUB-Q UD #30 ml DS: Summary Hospital Course: 57-year-old female with past medical history of insulin-dependent diabetes hypertension hyperlipidemia and hypothyroidism admitted for inpatient management acute kidney injury due to Naprosyn and COLT use. 1. Acute renal failure: improved s/p IVF's, Creat 2.12 on D/C from 3.53, per nephrology stable for discharge, patient advised that she needs a BMP from her rehab care assistant or her primary care doctor in the next 1-2 days as well as a follow-up visit. Avoid naproxen. 2. Hyperkalemia: resolved, due to SERAFIN. 3. Hypertension: mild, COLT held due to SERAFIN, can resume as an OP once creatinine improves. 4. Diabetes mellitus type 2: on lantus and SSI, held metformin due to SERAFIN, BS stable during stay. - Time Spent with Patient Total time spent providing and/or coordinating discharge services: Less than 30 minutes - Quality: VTE Deep Vein Thrombosis/Pulmonary Embolism Present on Admission: No Exam Vital signs: Vital Signs 06/21/18 00:59 06/21/18 08:00 06/21/18 12:00 Temperature 98.3 F 98.5 F 97.8 F Pulse Rate 71 69 74 Respiratory Rate 18 18 18 Blood Pressure 126/60 138/74 163/81 H Pulse Oximetry 97 96 96 06/21/18 16:00 Temperature 98.6 F Pulse Rate 66 Respiratory Rate 18 Blood Pressure 164/78 H Pulse Oximetry 98 Intake & Output 06/21/18 06/21/18 06/22/18 06:59 18:59 06:59 Intake Total 1360 / 1360 Output Total 1900 / 1900 Balance -540 / -540 Intake: IV 1000 / 1000 NS Inj 1,000 ML @ 125 mls/hr IV 1000 / 1000 .CONT .Q8H [facility] Rx#:[id number] Oral 360 / 360 Output: Urine 1900 / 1900 Other: # Voids 6 Date of Last Bowel Movement 06/20/18 06/21/18 # Bowel Movements 0 1 Results Procedures completed during hospitalization: n/a Labs on day of discharge: Labs from last 24 hours 06/21/18 06/21/18 06/21/18 08:29 07:30 07:30 WBC 8.6 RBC 3.62 L Hgb 11.5 L Hct 33.5 L MCV 92.6 MCH 31.9 MCHC 34.4 RDW 12.5 Plt Count 245 MPV 8.0 Neut % (Auto) 67.6 Lymph % (Auto) 23.3 [place] % (Auto) 5.3 Eos % (Auto) 3.2 Baso % (Auto) 0.6 Neut # (Auto) 5.8 Lymph # (Auto) 2.0 [place] # (Auto) 0.5 Eos # (Auto) 0.3 Baso # (Auto) 0.1 WBC Differential . Differential Comment Auto diff final Sodium 147 H Potassium 3.7 Chloride 112 H Carbon Dioxide 25.8 Anion Gap 9 BUN 23 H Creatinine 2.12 H Estimated GFR 24 L POC Glucose 184 H Random Glucose 142 H Calcium 8.6 06/20/18 20:44 WBC RBC Hgb Hct MCV MCH MCHC RDW Plt Count MPV Neut % (Auto) Lymph % (Auto) [place] % (Auto) Eos % (Auto) Baso % (Auto) Neut # (Auto) Lymph # (Auto) [place] # (Auto) Eos # (Auto) Baso # (Auto) WBC Differential Differential Comment Sodium Potassium Chloride Carbon Dioxide Anion Gap BUN Creatinine Estimated GFR POC Glucose 128 H Random Glucose Calcium - Impressions ITS Impressions Abdomen/Bladder Ultrasound 06/17/18 00:00 CONCLUSION: 1. Unremarkable kidneys and urinary bladder. 2. Fatty infiltration of the liver. Abdomen/Pelvis CT 06/17/18 14:33 CONCLUSION: 1. Negative for an acute process Discharge Plan - Discharge Disposition Patient Disposition: 01 Discharge Home - Discharge Condition Condition: Stable - Discharge Order Discharge Orders: Discharge Order (Routine); Ordered 06/21/18 Ordered By: Shanna oLvelace Nephrology Clear for Discharge (Routine); Ordered 06/20/18 Ordered By: Hero Guzman - Physicians Team Primary Care Provider: Tariq Schroeder Attending Provider: Shanna Lovelace Other Providers: Hero Guzman MD
== END 2018-06-21 18:27 | disposition home or self-care (01) ==
LOC: NEPD 12:35 → NEDA 16:47 → N06 17:36
PROVIDERS: ADMIT Family Medicine; ATTEND Family Medicine